=== PATIENT | female | born 1980 | race African-American/Black ===

== ENCOUNTER 2024-02-08 09:54 | Outpatient (REF) | payer SELFPAY ==
[2024-02-08 11:08] LABS: MANUAL DIFF FLAG NO
[2024-02-08 11:21] LABS: Basophils Absolute Auto 0.1 X10*3/uL (0.0-0.2); Basophils Percent Auto 0.9 % (0-2); Eosinophils Absolute Auto 0.3 X10*3/uL (0.0-0.4); Eosinophils Percent Auto 3.6 % (0-4); Hematocrit 43.2 % (37.0-47.0); Hemoglobin 14.5 g/dl (12.0-16.0); Imm Gran Abs Auto 0.04 X10*3/uL (0.00-0.03); Imm Gran Pct Auto 0.6 % (0.0-0.4); Lymphocytes Absolute Auto 1.7 X10*3/uL (1.2-4.9); Lymphocytes Percent Auto 24.8 % (20-40); Mean Corpuscular HGB Conc 33.6 g/dl (31.0-35.0); Mean Corpuscular Hemoglobin 30.7 pg (27.0-33.0); Mean Corpuscular Volume 91.3 fL (80.0-98.0); Mean Platelet Volume 10.4 fL (9.4-12.3); Monocytes Absolute Auto 0.5 X10*3/uL (0.1-1.2); Monocytes Percent Auto 6.6 % (2-11); Neutrophils Absolute Auto 4.4 x10*3/uL (2.0-8.3); Neutrophils Percent Auto 63.5 % (45-73); Platelet Count 141 X10*3/uL (160-400); Red Blood Count 4.73 X10*6/uL (4.20-5.50); Red Cell Distribution Width 12.8 % (11.0-16.0)
[2024-02-08 11:30] LABS: Estimated Average Glucose 123 mg/dL; Hemoglobin A1c % 5.9 % (<6.0)
[2024-02-08 11:59] LABS: Alanine Aminotransferase 19 U/L (0-31); Alkaline Phosphatase 75 U/L (39-117); Anion Gap 13 (12-20); Aspartate Amino Transferase 16 U/L (5-31); Bilirubin Total 0.5 mg/dL (0.0-1.0); Blood Urea Nitrogen 9 mg/dL (9-16); Calcium 9.3 mg/dL (8.4-10.2); Carbon Dioxide 20 mmol/L (22-29); Chloride 112 mmol/L (96-108); Estimated Glomerular Filt Rate > 60; Glucose Random 108 mg/dL (60-115); Iron 95 mcg/dL (30-160); Percent Iron Saturation 31 % (15-50); Potassium 4.4 mmol/L (3.3-5.1); Sodium 141 mmol/L (135-145); Total Iron Binding Capacity 310 mcg/dL (228-428); Total Protein 7.2 g/dL (6.5-8.0); Unsaturated Iron Binding 215 ug/dL
[2024-02-08 12:15] LABS: TSH reflex Free T4 1.55 uIU/mL (0.32-4.0)
== END 2024-02-08 09:55 | disposition home or self-care (01) ==
LOC: HO.HHCL 09:54
PROVIDERS: Visit Provider Nurse Practitioner Family
DX: R53.83 Other fatigue (principal); R03.0 Elevated blood-pressure reading, without diagnosis of hypertension; R73.9 Hyperglycemia, unspecified; E66.3 Overweight; D50.0 Iron deficiency anemia secondary to blood loss (chronic)
CPT/HCPCS: 36415; 80053; 83036; 83540; 84443; 85025

== ENCOUNTER 2024-12-13 14:15 | Outpatient (REF) | payer MEDICARE, MEDICAID, SELFPAY ==
--- NOTE | ~2024-12-13 | XR_ITS ---
EXAMINATION: XR ELBOW, RIGHT CLINICAL INFORMATION: r elbow pain x 1 year COMPARISON: None available. TECHNIQUE: AP, lateral, and oblique views of the right elbow. FINDINGS: No acute cortical disruption or malalignment. No gross joint effusion. Small osteophyte formation and radial head olecranon and humeral condyle. No subcutaneous emphysema. No lytic or blastic lesions. XR/XR elbow RT min 3V IMPRESSION: Mild degenerative changes. Electronically signed by: Dixon Oliva MD 12/13/2024 02:39 PM EDT
--- OUTSIDE RECORDS SUMMARY | 2024-12-13 14:30 | XMS_ITS | Encounter Summary ---
Author Organization [employer] Address [address] [facility] [address] [address] Care Team Providers Care Protection Consultant Name Role Phone Lidia Lam RACHID Primary Care Provider [phone] Encounter Details Date Type Department Care Team (Latest Contact Info) Description 12/13/2024 Travel Social History Tobacco Use Types Packs/Day Years Used Date Smoking Tobacco: Every Day Cigarettes Alcohol Use Standard Drinks/Week Comments Never 0 (1 standard drink = 0.6 oz pur e alcohol) Depression Answer Date Recorded Patient Health Questionnaire-9 Score 20 02/08/2024 Patient Health Questionnaire-9 Score 20 02/08/2024 Last PHQ-9: Questionnaire Data Not on file 0 02/08/2024 Housing Stability Answer Date Recorded What is your housing situation today? I have amber sal 02/08/[address] you li ve. Do you have problems with any of the following? None of the above 02/08/2024 Food Insecurity Answer Date Recorded Within the past 12 months, y ou worried that your food would run out before you got money to buy more: Never True 02/08/2024 Within the past 12 months,th e food you bought just didn't last and you didn't have enough money to get more: Never True 09/2023 Transportation Answer Date Recorded In the past 12 months, has l ack of transportation kept you from medical appts, meetings, work or from getting things needed for daily living? No 02/08/2024 Utilities Answer Date Recorded In the past 12 months, has t he electric, gas, oil or water company threatened to shut off services in your home? No 02/08/2024 Depression Answer Date Recorded Patient Health Questionnaire-2 Score 5 02/08/2024 Internet Access Answer Date Recorded Internet Access Q1 Yes 02/08/2024 Internet Access Q2 Not on file 02/08/2024 Comments Unknown Sex and Gender Information Value Date Recorded Sex Assigned at Female 06/09/2023 2:30 PM EST Legal Sex Female 2:25 PM EST Gender Identity Female 06/09/2023 2:30 PM EST Sexual Orientation Don't know 06/09/2023 2: 30 PM EST documented as of this encounter Plan of Treatment Not on file documented as of this encounter Visit Diagnoses Not on filedocumented in this encounter Additional Health Concerns Assessment Noted Time PHQ-9 Depression Total Score: 20 024 9:25 AM EDT documented as of this encounter Care Teams Protection Consultant Relationship Specialty Start Date End Date Lidia Lam NP [address] [place] [id number] PCP - General Family Medicine 02/08/24 documented as of this encounter
--- OUTSIDE RECORDS SUMMARY | 2024-12-13 14:30 | XMS_ITS | Data Portability ---
Author Organization [place] [employer] [facility], [facility] [employer] Address [address] [place] [address] Assessment Encounter Date Assessment Date Assessment LastModified by Organization Details LastModified Time 08/09/2024 08/09/2024 Reason for Encounter Removeable Prosthesis Encounter Date: 10:30 AM - 08/09/2024 Treating Provider: HARISH Quintanilla Problems Problems reviewed by: Ofe Mckeon Problems reviewed on: 08/09/2024 10:41 am Acute bronchitis Hip pain Pain in lower limb Closed fracture of hip Arthritis Anemia Allergies No known drug allergies Medications Medications reviewed by: Ofe Mckeon Medications reviewed on: 08/09/2024 10:41 am tiZANidine 2 mg tablet valACYclovir 1 gram tablet fluconazole 200 mg tablet AplisoL 5 tub. unit/0.1 mL intradermal injection solution miconazole nitrate 2 % vaginal cream valACYclovir 500 mg tablet terconazole 80 mg vaginal suppository LORazepam 0.5 mg tablet Nortrel 1/35 (28) 1 mg-35 mcg tablet pantoprazole 40 mg tablet,delayed release clotrimazole-betame thasone 1 %-0.05 % topical cream oxyCODONE 5 mg capsule codeine 10 mg-guaifenesin 100 mg/5 mL oral liquid albuterol sulfate HFA 90 mcg/actuation aerosol inhaler OxyCONTIN 10 mg tablet,extended release oxyCODONE 5 mg tablet cyclobenzaprine 5 mg tablet amoxicillin 500 mg capsule gabapentin 600 mg tablet prazosin 1 mg capsule sucralfate 1 gram tablet spironolactone 100 mg tablet amoxicillin 500 mg tablet ARIPiprazole 1 mg/mL oral solution ARIPiprazole 2 mg tablet oxyCODONE 10 mg tablet lidocaine 5 % topical ointment Enskyce 0.15 mg-0.03 mg tablet doxycycline hyclate 100 mg capsule betamethasone, augmented 0.05 % topical ointment furosemide 20 mg tablet nystatin 100,000 unit/gram topical powder ketoconazole 2 % topical cream escitalopram 10 mg tablet escitalopram 20 mg tablet cholecalciferol (vitamin D3) 25 mcg (1,000 unit) tablet cloNIDine HCL 0.1 mg tablet hydrOXYzine HCL 25 mg tablet ibuprofen 800 mg tablet blood pressure test kit-large cuff baclofen 10 mg tablet clindamycin 1 % lotion cyclobenzaprine 10 mg tablet propranoloL ER 80 mg capsule,24 hr,extended release doxycycline hyclate 100 mg tablet varenicline tartrate 0.5 mg tablet Treatment Planned Procedures D2330 - Resin-based composite - one surface, anterior Teeth: 8 (F) 9 (F) Completed Procedures D5212 - Mandibular partial denture - resin base (including any conventional clasps, rests and teeth) Teeth: 19, 30 Stages: Three, Four Completed Procedures (cont.)Completed try in for lower RPD. pt is happy with the fit and shade of RPD. pt signed consent and NV deliver rpd and complete filling #8,#9 Additional Comments: Explained and discussed conditions, findings, and plan of care. Follow-Up/Next Visit: Next appointment date is 02/06/2025 at 04:00 PM Treating Provider: Phyllis MOREIRA Reason For Encounter: Restorations Treating Provider HARISH Quintanilla I attest that the treatment rendered today was completed. , 11:31 AM. [email or web address] Not available 08/10/2024 16:35:43 09/06/2024 09/06/2024 Reason for Encounter Removeable Prosthesis Encounter Date: 10:30 AM - 09/06/2024 Treating Provider: HARISH Quintanilla Problems Problems reviewed by: Ofe Mckeon Problems reviewed on: 09/06/2024 10:35 am Acute bronchitis Hip pain Pain in lower limb Closed fracture of hip Arthritis Anemia Allergies No known drug allergies Medications Medications reviewed by: Ofe Mckeon Medications reviewed on: 09/06/2024 10:35 am tiZANidine 2 mg tablet valACYclovir 1 gram tablet fluconazole 200 mg tablet AplisoL 5 tub. unit/0.1 mL intradermal injection solution miconazole nitrate 2 % vaginal cream valACYclovir 500 mg tablet terconazole 80 mg vaginal suppository LORazepam 0.5 mg tablet Nortrel 1/35 (28) 1 mg-35 mcg tablet pantoprazole 40 mg tablet,delayed release clotrimazole-betame thasone 1 %-0.05 % topical cream oxyCODONE 5 mg capsule codeine 10 mg-guaifenesin 100 mg/5 mL oral liquid albuterol sulfate HFA 90 mcg/actuation aerosol inhaler OxyCONTIN 10 mg tablet,extended release oxyCODONE 5 mg tablet cyclobenzaprine 5 mg tablet amoxicillin 500 mg capsule gabapentin 600 mg tablet prazosin 1 mg capsule sucralfate 1 gram tablet spironolactone 100 mg tablet amoxicillin 500 mg tablet ARIPiprazole 1 mg/mL oral solution ARIPiprazole 2 mg tablet oxyCODONE 10 mg tablet lidocaine 5 % topical ointment Enskyce 0.15 mg-0.03 mg tablet doxycycline hyclate 100 mg capsule betamethasone, augmented 0.05 % topical ointment furosemide 20 mg tablet nystatin 100,000 unit/gram topical powder ketoconazole 2 % topical cream escitalopram 10 mg tablet escitalopram 20 mg tablet cholecalciferol (vitamin D3) 25 mcg (1,000 unit) tablet cloNIDine HCL 0.1 mg tablet hydrOXYzine HCL 25 mg tablet ibuprofen 800 mg tablet blood pressure test kit-large cuff baclofen 10 mg tablet clindamycin 1 % lotion cyclobenzaprine 10 mg tablet propranoloL ER 80 mg capsule,24 hr,extended release doxycycline hyclate 100 mg tablet varenicline tartrate 0.5 mg tablet Completed Procedures D5212 - Mandibular partial denture - resin base (including any conventional clasps, rests and teeth) Teeth: 19, 30 Stages: Final Completed Procedures (cont.)Completed delivery of lower rpd to pt satisfaction. all instructions were provided and pt will return for adjustments . #8,#9 pending hoahaoism. Additional Comments: Explained and discussed conditions, findings, and plan of care. Follow-Up/Next Visit: Next appointment date is 09/18/2024 at 01:30 PM Treating Provider: Phyllis MOREIRA Reason For Encounter: Removeable Prosthesis Treating Provider PhyllisHARISH Godfrey I attest that the treatment rendered today was completed. , 5:46 PM. [id number] Not available 09/13/2024 11:55:24 10/17/2024 10/17/2024 Reason for Encounter Removeable Prosthesis Encounter Date: 1:30 PM - 10/17/2024 Treating Provider: HARISH Quintanilla Problems Acute bronchitis Hip pain Pain in lower limb Closed fracture of hip Arthritis Anemia Allergies No known drug allergies Medications tiZANidine 2 mg tablet valACYclovir 1 gram tablet fluconazole 200 mg tablet AplisoL 5 tub. unit/0.1 mL intradermal injection solution miconazole nitrate 2 % vaginal cream valACYclovir 500 mg tablet terconazole 80 mg vaginal suppository LORazepam 0.5 mg tablet Nortrel 1/35 (28) 1 mg-35 mcg tablet pantoprazole 40 mg tablet,delayed release clotrimazole-betame thasone 1 %-0.05 % topical cream oxyCODONE 5 mg capsule codeine 10 mg-guaifenesin 100 mg/5 mL oral liquid albuterol sulfate HFA 90 mcg/actuation aerosol inhaler OxyCONTIN 10 mg tablet,extended release oxyCODONE 5 mg tablet cyclobenzaprine 5 mg tablet amoxicillin 500 mg capsule gabapentin 600 mg tablet prazosin 1 mg capsule sucralfate 1 gram tablet spironolactone 100 mg tablet amoxicillin 500 mg tablet ARIPiprazole 1 mg/mL oral solution ARIPiprazole 2 mg tablet oxyCODONE 10 mg tablet lidocaine 5 % topical ointment Enskyce 0.15 mg-0.03 mg tablet doxycycline hyclate 100 mg capsule betamethasone, augmented 0.05 % topical ointment furosemide 20 mg tablet nystatin 100,000 unit/gram topical powder ketoconazole 2 % topical cream escitalopram 10 mg tablet escitalopram 20 mg tablet cholecalciferol (vitamin D3) 25 mcg (1,000 unit) tablet cloNIDine HCL 0.1 mg tablet hydrOXYzine HCL 25 mg tablet ibuprofen 800 mg tablet blood pressure test kit-large cuff baclofen 10 mg tablet clindamycin 1 % lotion cyclobenzaprine 10 mg tablet propranoloL ER 80 mg capsule,24 hr,extended release doxycycline hyclate 100 mg tablet varenicline tartrate 0.5 mg tablet Completed Procedures D0140 - Limited oral evaluation - problem focused D0220 - Intraoral - periapical first radiographic image Teeth: 8 D0230 - Intraoral - periapical each additional radiographic image Teeth: 31 Completed Procedures (cont.) Pt presents for limited exam.Medical and dental hx reviewed. CC. : severe constant pain in lower right teeth, pointing to tooth # 31 and severe sensitivity along upper fornt teeth area 1 PA of # 31,#8 acquired, showing signs no signs of PARL , possible deep mOD lesion underneath the existing filling, #9 has facial decay. Clinical exam reveals extensive decay approximating nerve from the facial surface #9,8 and also Distal lingual surface of #31 area. Tender to palpation and non tender to percussion. Possible reversible pulpitis #31 and #8 area Rec caries control and hoahaoism followed by re evaluation to assess if rct is necessary.Pt was dimissed in good condition with no complications from today's Tx. N.V. see energy scheduler:#31,#9 caries control Additional Comments: Explained and discussed conditions, findings, and plan of care. Follow-Up/Next Visit: Next appointment date is 02/06/2025 at 04:00 PM Treating Provider: Phyllis MOREIRA Reason For Encounter: Restorations Treating Provider HARISH Quintanilla I attest that the treatment rendered today was completed. , 4:59 PM. [email or web address] Not available 10/25/2024 12:33:50 10/22/2024 10/22/2024 Reason for Encounter Restorations Encounter Date: 3:00 PM - 10/22/2024 Treating Provider: HARISH Quintanilla Problems Acute bronchitis Pain of hip region Pain in lower limb Closed fracture of hip Arthritis Anemia Allergies No known drug allergies Medications tiZANidine 2 mg tablet valACYclovir 1 gram tablet fluconazole 200 mg tablet AplisoL 5 tub. unit/0.1 mL intradermal injection solution miconazole nitrate 2 % vaginal cream valACYclovir 500 mg tablet terconazole 80 mg vaginal suppository LORazepam 0.5 mg tablet Nortrel 1/35 (28) 1 mg-35 mcg tablet pantoprazole 40 mg tablet,delayed release clotrimazole-betame thasone 1 %-0.05 % topical cream oxyCODONE 5 mg capsule codeine 10 mg-guaifenesin 100 mg/5 mL oral liquid albuterol sulfate HFA 90 mcg/actuation aerosol inhaler OxyCONTIN 10 mg tablet,extended release oxyCODONE 5 mg tablet cyclobenzaprine 5 mg tablet amoxicillin 500 mg capsule gabapentin 600 mg tablet prazosin 1 mg capsule sucralfate 1 gram tablet spironolactone 100 mg tablet amoxicillin 500 mg tablet ARIPiprazole 1 mg/mL oral solution ARIPiprazole 2 mg tablet oxyCODONE 10 mg tablet lidocaine 5 % topical ointment Enskyce 0.15 mg-0.03 mg tablet doxycycline hyclate 100 mg capsule betamethasone, augmented 0.05 % topical ointment furosemide 20 mg tablet nystatin 100,000 unit/gram topical powder ketoconazole 2 % topical cream escitalopram 10 mg tablet escitalopram 20 mg tablet cholecalciferol (vitamin D3) 25 mcg (1,000 unit) tablet cloNIDine HCL 0.1 mg tablet hydrOXYzine HCL 25 mg tablet ibuprofen 800 mg tablet blood pressure test kit-large cuff baclofen 10 mg tablet clindamycin 1 % lotion cyclobenzaprine 10 mg tablet propranoloL ER 80 mg capsule,24 hr,extended release doxycycline hyclate 100 mg tablet varenicline tartrate 0.5 mg tablet Completed Procedures D2332 - Resin-based composite - three surfaces, anterior Teeth: 9 (FML) D2330 - Resin-based composite - one surface, anterior Teeth: 8 (FV) Completed Procedures (cont.) APatient presented to clinic for a composite filling on tooth-# 8F5,#9MLF Reviewed current medical history and there are no contraindications or changes.a Reviewed risks and benefits and alternatives for today's procedure with the patient. Discussed possibility of post op tooth discomfort and in some cases needing a root canal after fillings. No therapy option was mentioned but disadvised. Verbal consent for today's procedure obtained. Anesthesia INFILTRATION USING 1 IN 100 K 2 %EPI LIDOCAINE 1 CARPULES. Caries excavation done using high speed handpiece and low speed round bur, spoon excavator closer to end of preparation. The decay is deep into dentin. Etched using 37% Phosphoric acid, rinsed and dried. Bonded with Scotch Cancino and cured. Restored in a 1.5-2mm incremental layer with flowable ( BEAUTIFUL) + packable ( FILTEK SUPREME) composite resin (Shade A2). Cured for 40 seconds. Finished, adjusted and polished occlusion. Checked interproximal and occlusion. NV #31 Additional Comments: Explained and discussed conditions, findings, and plan of care. Follow-Up/Next Visit: Next appointment date is 02/06/2025 at 04:00 PM Treating Provider: Phyllis MOREIRA Reason For Encounter: Restorations Treating Provider HARISH Quintanilla I attest that the treatment rendered today was completed. , 6:13 PM. [email or web address] Not available 10/24/2024 11:42:37 11/13/2024 11/13/2024 Reason for Encounter Restorations Encounter Date: 3:00 PM - 11/13/2024 Treating Provider: HARISH Quintanilla Problems Problems reviewed by: Justin Moscoso Problems reviewed on: 11/13/2024 03:03 pm Acute bronchitis Pain of hip region Pain in lower limb Closed fracture of hip Arthritis Anemia Allergies No known drug allergies Allergies reviewed by: Justin Moscoso Allergies reviewed on: 11/13/2024 03:03 pm Medications Medications reviewed by: Justin Moscoso Medications reviewed on: 11/13/2024 03:03 pm tiZANidine 2 mg tablet valACYclovir 1 gram tablet fluconazole 200 mg tablet AplisoL 5 tub. unit/0.1 mL intradermal injection solution miconazole nitrate 2 % vaginal cream valACYclovir 500 mg tablet terconazole 80 mg vaginal suppository LORazepam 0.5 mg tablet Nortrel 1/35 (28) 1 mg-35 mcg tablet pantoprazole 40 mg tablet,delayed release clotrimazole-betame thasone 1 %-0.05 % topical cream oxyCODONE 5 mg capsule codeine 10 mg-guaifenesin 100 mg/5 mL oral liquid albuterol sulfate HFA 90 mcg/actuation aerosol inhaler OxyCONTIN 10 mg tablet,extended release oxyCODONE 5 mg tablet cyclobenzaprine 5 mg tablet amoxicillin 500 mg capsule gabapentin 600 mg tablet prazosin 1 mg capsule sucralfate 1 gram tablet spironolactone 100 mg tablet amoxicillin 500 mg tablet ARIPiprazole 1 mg/mL oral solution ARIPiprazole 2 mg tablet oxyCODONE 10 mg tablet lidocaine 5 % topical ointment Enskyce 0.15 mg-0.03 mg tablet doxycycline hyclate 100 mg capsule betamethasone, augmented 0.05 % topical ointment furosemide 20 mg tablet nystatin 100,000 unit/gram topical powder ketoconazole 2 % topical cream escitalopram 10 mg tablet escitalopram 20 mg tablet cholecalciferol (vitamin D3) 25 mcg (1,000 unit) tablet cloNIDine HCL 0.1 mg tablet hydrOXYzine HCL 25 mg tablet ibuprofen 800 mg tablet blood pressure test kit-large cuff baclofen 10 mg tablet clindamycin 1 % lotion cyclobenzaprine 10 mg tablet propranoloL ER 80 mg capsule,24 hr,extended release doxycycline hyclate 100 mg tablet varenicline tartrate 0.5 mg tablet Completed Procedures D2393 - Resin-based composite - three surfaces, posterior Teeth: 31 (MOD) Completed Procedures (cont.) APatient presented to clinic for a composite filling on tooth-# 31 MOD Reviewed current medical history and there are no contraindications or changes.a Reviewed risks and benefits and alternatives for today's procedure with the patient. Discussed possibility of post op tooth discomfort and in some cases needing a root canal after fillings. No therapy option was mentioned but disadvised. Verbal consent for today's procedure obtained. Anesthesia INFILTRATION USING 1 IN 100 K 2 %EPI LIDOCAINE 1 CARPULES. Caries excavation done using high speed handpiece and low speed round bur, spoon excavator closer to end of preparation. The decay is deep into dentin. Etched using 37% Phosphoric acid, rinsed and dried. Bonded with Scotch Cancino and cured. Restored in a 1.5-2mm incremental layer with flowable ( BEAUTIFUL) + packable ( FILTEK SUPREME) composite resin (Shade A2). Cured for 40 seconds. Finished, adjusted and polished occlusion. Checked interproximal and occlusion. NV RECARE AND FOLLOW UP Additional Comments: Explained and discussed conditions, findings, and plan of care. Follow-Up/Next Visit: Next appointment date is 02/06/2025 at 04:00 PM Treating Provider: Phyllis MOREIRA Reason For Encounter: Restorations Treating Provider HARISH Quintanilla I attest that the treatment rendered today was completed. , 3:37 PM. [email or web address] Not available 11/14/2024 09:21:10 Plan of Treatment Reminders Order Date Submit Date Provider Last Modified By Organization Details Last Modified Time Details Appointments Dental 60 2024 04:00P Maria Alejandra Ferguson HARISH Daley Not available Not available Not available Lab None recorded . Referral None recorded . Procedures None recorded . Surgeries None recorded . Imaging None recorded . Medication Orders None recorded . Patient TargetsNo targets recorded. Patient InstructionsNo instructions recorded. Reason for Referral None Reported. Problems Name Problem SNOMED Code Status Onset Date Resolution Date Notes Provider Name and Address Organization Details Recorded Time Closed fracture of hip [id number] Alvarado Whaley MD [address] [place] [address], [id number], [facility] [employer] 4 17:26:46 Pain of hip region [id number] Alvarado Whaley MD [address] [place] [address], [id number], [facility] [employer] [facility] 6 12:32:58 Pain in lower limb [id number] Alvarado Whaley MD [address] [place] [address], [id number], [facility] [employer] [facility] 6 10:10:27 Acute bronchitis [id number] Alvarado Whaley MD [address] [place] [address], [id number], [facility] [employer] [facility] 5 15:05:24 Notes:Dental - Reported Prob lems 2022-05-19 Anemia (disorder) Arthritis (disorder) Note: liver disease Problem Notes None recorded. Procedures Surgical History Date Name Laterality Status Provider Name and Address Organization Details Recorded Time 9 Dilation and Curettage completed Yari Smiley [facility] [employer] [facility] 11/03/2012 10:22:33 Imaging Results None recorded. Procedure Notes None recorded. Medical Equipment None Reported. Allergies No known drug allergies Medications Name Sig Start Date Stop Date Status Note LastModified by Organization Details LastModified Time cyclobenzap rine 10 mg tablet active Not Available Not Available Not Available amoxicillin 500 mg capsule TAKE 1 CAPSULE BY MOUTH EVERY 8 HOURS WITH MEALS FOR 7 DAYS active Not Available Not Available No t Available clonidine HCl 0.1 mg tablet TAKE 1 TABLET BY MOUTH TWICE DAILY NEEDED active Not Available Not Available No t Available gabapentin 600 mg tablet TAKE 1 TABLET BY MOUTH 4 TIMES DAILY active Not Available Not Available No t Available doxycycline hyclate 100 mg capsule TAKE 2 CAPSULES BY MOUTH A SINGLE DOSE active Not Available Not Available No t Available tizanidine 2 mg tablet active Not Available Not Available Not Available ibuprofen 800 mg tablet TAKE 1 TABLET BY MOUTH UP TO THREE TIMES DAILY WITH FOOD FOR 10 DAYS active Not Available Not Available No t Available valacyclovi r 1 gram tablet TAKE 1 TABLET BY MOUTH TWICE DAILY FOR 5 DAYS active Not Available Not Available No t Available prazosin 1 mg capsule TAKE 1 CAPSULE BY MOUTH THREE TIMES DAILY active Not Available Not Available No t Available fluconazole 200 mg tablet take 1 tablet by mouth today active Not Available Not Available No t Available sucralfate 1 gram tablet active Not Available Not Available Not Available Aplisol 5 tub. unit/0.1 mL intradermal injection solution Inject 0.1 mL by intraderm al route. RTC 48-72 hours after for results. 2014 active Not Available Not Available Not Avai lable spironolact one 100 mg tablet TAKE 1 TABLET BY MOUTH ONCE DAILY active Not Available Not Available No t Available miconazole nitrate 2 % vaginal cream Insert 1 applicato rful every day by vaginal route for 5 days. active Not Available Not Available No t Available valacyclovi r 500 mg tablet take 1 tablet by mouth once daily active Not Available Not Available No t Available amoxicillin 500 mg tablet TAKE 2 TABLETS BY MOUTH FOR FIRST DOSE, THEN 1 TABLET EVERY 8 HOURS FOR 7 DAYS active Not Available Not Available No t Available terconazole 80 mg vaginal suppository active Not Available Not Available Not Available Celebrex 200 mg capsule Take 1 capsule twice a day by oral route for 30 days. 03/02 completed Not Available Not Available Not Available meloxicam 7.5 mg tablet Take 1 tablet twice a day by oral route for 20 days. 05/01 completed Not Available Not Available Not Available lorazepam 0.5 mg tablet active Not Available Not Available Not Available Nortrel 1/35 (28) 1 mg-35 mcg tablet Take 1 tablet every day by oral route for 30 days. 2012 active Not Available Not Available Not Avai lable baclofen 10 mg tablet TAKE 1/2 TO 1 (ONE-HALF TO ONE) TABLET BY MOUTH THREE TIMES DAILY NEEDED FOR MUSCLE SPASM active Not Available Not Available No t Available pantoprazol e 40 mg tablet,eri yed release TAKE 1 TABLET BY MOUTH ONCE DAILY active Not Available Not Available No t Available clotrimazol e-betametha sone 1 %-0.05 % topical cream apply and RUB IN A THIN FILM affected area twice a day active Not Available Not Available No t Available propranolol ER 80 mg capsule,24 hr,extended release TAKE 1 CAPSULE BY MOUTH ONCE DAILY DO NOT CRUSH, CHEW, OR SPLIT active Not Available Not Available No t Available oxycodone 5 mg capsule Take 1 capsule twice a day by oral route for 15 days. 2015 active Not Available Not Available Not Avai lable betamethaso ne, augmented 0.05 % topical ointment APPLY THIN LAYER TOPICALLY TO AFFECTED AREA TWICE DAILY active Not Available Not Available No t Available hydroxyzine HCl 25 mg tablet TAKE 1 TO 2 TABLETS BY MOUTH AT BEDTIME NEEDED FOR SLEEP active Not Available Not Available No t Available codeine 10 mg-guaifene sin 100 mg/5 mL oral liquid Take 10 mL every 6-8 hours by oral route for 4 days. 2015 active Not Available Not Available Not Avai lable furosemide 20 mg tablet TAKE 1 TABLET BY MOUTH ONCE DAILY active Not Available Not Available No t Available nystatin 100,000 unit/gram topical powder APPLY POWDER TOPICALLY TO AFFECTED AREA TWICE DAILY NEEDED active Not Available Not Available No t Available albuterol sulfate HFA 90 mcg/actuati on aerosol inhaler INHALE 2 PUFFS BY MOUTH 4 TIMES DAILY NEEDED active Not Available Not Available No t Available OxyContin 10 mg tablet,exte nded release active Not Available Not Available Not Available ketoconazol e 2 % topical cream APPLY CREAM TOPICALLY TO AFFECTED AREA ONCE DAILY active Not Available Not Available No t Available doxycycline hyclate 100 mg tablet TAKE 1 TABLET BY MOUTH TWICE DAILY FOR 7 DAYS TAKE WITH A FULL GLASS OF WATER AND DO NOT LIE DOWN FOR AT LEAST 30 MINUTES AFTER active Not Available Not Available No t Available oxycodone 5 mg tablet take 1 tablet by mouth three times a day if needed active Not Available Not Available No t Available clindamycin 1 % lotion APPLY LOTION TOPICALLY TWICE DAILY active Not Available Not Available No t Available olmesartan 20 mg tablet TAKE 1 TABLET BY MOUTH ONCE DAILY active Not Available Not Available No t Available Zithromax 500 mg tablet Take 1 tablet every day by oral route for 3 days. 11/06 completed Not Available Not Available Not Available escitalopra m 10 mg tablet TAKE 1 TABLET BY MOUTH ONCE DAILY active Not Available Not Available No t Available escitalopra m 20 mg tablet TAKE 1 TABLET BY MOUTH ONCE DAILY active Not Available Not Available No t Available cyclobenzap rine 5 mg tablet Take 1 tablet twice a day by oral route for 30 days. 2014 active Not Available Not Available Not Avai lable aripiprazol e 1 mg/mL oral solution TAKE 5 ML BY MOUTH ONCE DAILY active Not Available Not Available No t Available varenicline tartrate 0.5 mg tablet TAKE 1 TABLET BY MOUTH TWICE DAILY WITH A FULL GLASS OF WATER active Not Available Not Available No t Available aripiprazol e 2 mg tablet TAKE 1 TABLET BY MOUTH ONCE DAILY active Not Available Not Available No t Available cholecalcif portillo (vitamin D3) 25 mcg (1,000 unit) tablet TAKE 1 TABLET BY MOUTH ONCE DAILY active Not Available Not Available No t Available oxycodone 10 mg tablet TAKE 1 TABLET BY MOUTH 4 TIMES DAILY NEEDED active Not Available Not Available No t Available blood pressure test kit-large cuff USE TO CHECK BLOOD PRESSURE EVERY DAY NEEDED active Not Available Not Available No t Available lidocaine 5 % topical ointment APPLY OINTMENT EXTERNALL Y TO AFFECTED AREA(S) 1 TO 4 TIMES DAILY NEEDED active Not Available Not Available No t Available Enskyce 0.15 mg-0.03 mg tablet TAKE 1 TABLET BY MOUTH ONCE DAILY FOR 28 DAYS active Not Available Not Available No t Available Vitals None Recorded Social History Question Answer Notes LastModified by Organizat ion Details LastModified Time Tobacco Smoking Status Former Smoker Yari javier MA - [facility] 11/03/2012 10:30:24 Do You Have An Advance Directive? Yes Information not available 11/03/2012 What Is Your Level Of Caffeine Consumption? Heavy Information not available 11/03/2012 How Much Tobacco Do You Chew? None Information not available 11/03/2012 Which Illicit Or Recreational Drugs Have You Used? None Information not available 11/03/2012 Are There Any Guns Present In Your Home? No Information not available 11/03/2012 Hard Of Hearing Or Deaf In One Or Both Ears? No Information not available 11/03/2012 Legally Blind In One Or Both Eyes? No Information no t available 11/03/2012 Foreign Travel No Informatio n not available 11/03/2012 Have You Ever Experienced Any Trauma Such As A Sexual Assault, Domestic Violence, Combat Experience, A Sudden Of A Loved One, Or Anything That Made You Excessively Afraid? No Information not available 11/03/2012 Language Kyrgyz Information no t available 11/03/2012 Country Of Origin [facility] Informa tion not available 11/03/2012 Dietary Vegetarian Information no t available 11/03/2012 Marital Status Single Informatio n not available 11/03/2012 How Many Children Do You Have? 1 Information not available 11/03/2012 Seat Belts Used Routinely No Information not available 11/03/2012 Smoke Alarm In Home Yes Information not available 11/03/2012 At What Age Did You Start Smoking Tobacco? 17 Information not available 11/07/2012 How Much Tobacco Do You Smoke? No Information not available 11/03/2012 General Stress Level High Information not available 11/03/2012 Do You Use Sunscreen Routinely? No Information not available 11/03/2012 How Many Years Have You Smoked Tobacco? 12 Information not available 11/03/2012 Sex: Female Functional Status Question Answer Note LastModified by Organizat ion Details LastModified Time What is your level of alcohol consumption? Occasional Information not available 11/03/2012 What is your exercise level? None Information not available 11/03/2012 Mental Status None recorded. Family History Nothing Reported. Medical History Condition Response Asthma, COPD, Breathing or Lung Disorder Y Anxiety/Depression N Gout N Cardiac History, Heart Murmur, PR N Eye or Vision Problems Y Gynecologic problems Y Hernia N Thyroid Problems N GI Problems N Developmental or Behavioral Disorders N Blood Pressure High or Low N Breast Problem Y Skin Problems N Food or Environmental Allergies N Diabetes N Bladder,Kidney Problems or Recurrent UTI 's N Muscle, Joint, or Bone Problems Y Bleeding Disorder N Arthritis N Infertility N Cancer (of any kind) N Defects or Inherited Diseases N Prostate issues, ED or Sexual Problem N Insomnia N Cholesterol High or Low N Chronic Pain N Stroke N Headache Y Dizziness or Fainting N Seizures or Convulsions N Ear Nose & Throat (ENT) Problems N Neuropathy N Osteoporosis N Liver Disease or Hepatitis N Gynecological History Statement/Question Response Frequency of Cycle regular Flow Moderate Date of LMP 10/20/2012 Menses Monthly Y Duration of Flow (days) 4 Current Control Method Vaginal Rin g Vaginal Ring Duration of Flow 3-4 days Obstetrics History GPAL:G 0 P 0 0 0 0 Immunizations Vaccine Type Date Status Note Provider Nam e and Address Organization Details Recorded Time Hep B, unspecified formulation 5 completed Not Available [facility] 07/07/2019 02:16:57 Hep B, adult 5 completed Not Available [facility] 06/23/2019 02:38:13 MMR 5 completed Not Available [facility] 06/23/2019 02:38:21 Hep B, adult 5 completed Not Available [facility] 06/23/2019 02:38:13 MMR 5 completed Not Available [facility] 06/23/2019 02:38:21 Past Encounters Encounter ID Performer Location Encounter Start Date Encounter Closed Date Diagnosis/Indication Diagnosis SNOMED-CT Code Diagnosis ICD10 Code Diagnosis Note [id number] Barbara Whaley MD [address] [place] [address] 07/25/2014 14:50:19 07/25/2014 15:59:58 Administration of measles and mumps and rubella vaccine [id number] Requires c ourse of hepatitis B vaccination [id number] HARISH Herrera [address] [place] [address] 05/19/2022 08:02:20 05/19/2022 10:13:35 [id number] HARISH Herrera [address] [place] [address] 07/14/2022 10:14:16 07/15/2022 11:45:33 [id number] Phyllis aquino, [facility] [address] [place] [address], [place] [address] 07/13/2023 07:58:40 07/14/2023 15:42:33 [id number] Phyllis aquino, [facility] [address] [place] [address], [place] [address] 08/02/2023 11:40:23 08/03/2023 12:15:46 [id number] Phyllis aquino, [facility] [address] [place] [address], [place] [address] 08/25/2023 14:10:52 09/01/2023 10:27:21 [id number] Phyllis aquino, [facility] [address] [place] [address], [place] [address] 09/08/2023 08:55:50 09/14/2023 15:53:48 [id number] Phyllis aquino, [facility] [address] [place] [address], [place] [address] 12/28/2023 10:04:54 01/03/2024 08:15:16 [id number] Phyllis aquino, [facility] [address] [place] [address], [place] [address] 02/29/2024 13:16:34 03/06/2024 08:12:43 [id number] Phyllis aquino, [facility] [address] [place] [address], [place] [address] 03/05/2024 09:29:37 03/09/2024 10:28:00 [id number] Phyllis Jenniferremasohalouise aquino, [facility] [address] [place] [address], [place] [address] 03/08/2024 10:31:31 03/16/2024 08:10:47 [id number] Phyllis aquino, [facility] [address] [place] [address], [place] [address] 03/13/2024 15:56:34 03/21/2024 08:21:38 [id number] Phyllis aquino, [facility] [address] [place] [address], [place] [address] 04/10/2024 07:56:52 04/11/2024 16:06:43 [id number] Phyllis aquino, [facility] [address] [place] [address], [place] [address] 04/20/2024 14:59:03 04/24/2024 07:44:18 [id number] Phyllis aquino, [facility] [address] [place] [address], [place] [address] 05/02/2024 08:57:16 05/08/2024 07:49:08 [id number] MINDY DO, [facility] [address] [place] [address], [place] [address] 06/08/2024 08:00:42 06/12/2024 07:33:42 [id number] Phyllis aquino, [facility] [address] [place] [address], [place] [address] 06/14/2024 09:37:51 06/15/2024 08:11:34 [id number] Phyllis aquino, [facility] [address] [place] [address], [place] [address] 06/19/2024 13:23:17 06/25/2024 16:40:20 [id number] Phyllis aquino, [facility] [address] [place] [address], [place] [address] 07/09/2024 12:57:44 07/10/2024 09:19:00 [id number] Phyllis aquino, [facility] [address] [place] [address], [place] [address] 08/09/2024 10:38:14 08/10/2024 16:35:49 [id number] Phyllis aquino, [facility] [address] [place] [address] 09/06/2024 10:32:58 09/13/2024 11:55:28 [id number] Phyllis aquino, [facility] [address] [place] [address] 10/17/2024 13:18:16 10/25/2024 12:33:55 [id number] Phyllis Beattymarcesohalouise aquino, [address] [place] [address] 10/22/2024 15:10:32 10/24/2024 11:42:43 [id number] Phyllis Beattymarceluther aquino, [address] [place] [address] 11/13/2024 15:01:12 11/14/2024 09:21:15 Health Concerns Section Related Observation LastModified by Organization Detai ls LastModified Time None Recorded Concern Status LastModified by Organization Details LastModified Time None Recorded Advance Directives Directive Y: Payers Insurance Date Sequence Insurance Name Policy Number Policy De La Rosa Covered Member ID De La Rosa Member ID Guarantor Name 08/09/2024 1 [facility] [place] [id number] Yari Smiley [id number] Yari Smiley 11/10/2024 1 [place]: [facility] Yari Smiley [id number] Yari Smiley 08/09/2024 [place] Yari Smiley [id number] Yari Smiley 11/10/2024 2 [place] Yari Smiley [id number] Yari Smiley 10/19/2024 [place] 21 Yari Smiley [id number] Yari Smiley 08/09/2024 1 [place] [facility] ([place]) [id number] Yari Smiley [id number] Yari Smiley 05/19/2022 [employer] (MOVED TO HOLD) Yari Smiley [id number] Yari Smiley OBGyn Episode No OBEpisode recorded.
== END 2024-12-13 14:16 | disposition home or self-care (01) ==
LOC: HO.HHCX 14:15
PROVIDERS: PCP Nurse Practitioner Family
DX: M79.601 Pain in right arm (principal)
CPT/HCPCS: 73080

== ENCOUNTER → 2024-12-13 14:26 | Outpatient (BNV) | payer MEDICARE, MEDICAID, SELFPAY | PROVIDERS: PCP Nurse Practitioner Family; Visit Provider Radiology Diagnostic Radiology | DX: M25.521 Pain in right elbow (principal) | CPT/HCPCS: 73080 ==